=== PATIENT | female | born 1940 | race Two or more races ===

== ENCOUNTER → 2016-09-30 | Outpatient (CLI) | payer MEDICARE, BC ==
--- NOTE | 2016-09-30 12:52 | Diagnostic Imaging Report ---
Indication: OSTEOP Technique: 10 mm thick slices obtained through the L2, L3, and L4 vertebral bodies. Cortical and trabecular regions of interest were drawn. The average trabecular bone mineral density was calculated. Total dose length product 30th mGycm. CTDIvol(s) 2, 3, 3 mGy. Dose reduction achieved using automated exposure control Comparison: None Findings: The calculated bone mineral density is a 5.7 mg ca-PINON/ml. The T score is -2.67. This indicates the patient's bone mineral density is 2.67 standard deviations below that of normal 20-year-old females. The Z score is 0.38. This indicates the patient's bone mineral density is 0.38 standard deviations above that of age-matched controls Impression: Patient's bone mineral density is greater than 25% below that of normal 20-year-old females. Patient is considered osteoporotic by WHO criteria. Insufficiency fracture risk is high. Patient should be considered for therapy, if not already initiated, with followup scan in one year to monitor response to therapy. The CT scanner at [facility] is accredited by the [employer] and the scans are performed using protocols designed to limit radiation exposure to as low as reasonably achievable to attain images of sufficient resolution adequate for diagnostic evaluation.
== END | disposition home or self-care (01) ==
LOC: CAT 09:55
DX: M81.0 Age-related osteoporosis without current pathological fracture (principal)
CPT/HCPCS: 77078